=== PATIENT | male | born 1990 | race Two or more races ===

== ENCOUNTER 2018-10-25 05:32 | Emergency (ER) | payer SELFPAY ==
[~2018-10-25] VITALS: Ht 182.9 cm; Wt 77.1 kg
--- NOTE | 2018-10-25 05:40 | NUR ---
PT [id number] FROM [address] C/O L KNEE PAIN X 3 DAYS, DENIES ANY INJURY. NO DEFORMITY NOTED. PT AOX4. NAD NOTED. RESP EVEN AND UNLABORED. PT IN BED 14. WILL CONTINUE TO MONITOR.
[2018-10-25] MEDS ORDERED: MEROPENEM 1 G VIAL IV ONE (06:13)
[2018-10-25] MEDS ORDERED: MORPHINE SULFATE INJ 4 MG/ML DISP.SYRIN ONE (06:14)
[2018-10-25] MEDS ORDERED: ONDANSETRON HCL/PF 4 MG/2 ML VIAL ONE (06:14)
[2018-10-25] MEDS ORDERED: MEROPENEM 1 G in IV NS 0.9% 100 ML IV ONE (06:30)
[2018-10-25] MEDS ORDERED: ONDANSETRON HCL/PF 4 MG/2 ML VIAL IVP ONE (06:30)
[2018-10-25] MEDS ORDERED: MORPHINE SULFATE INJ 2 MG/ML DISP.SYRIN IV ONE (06:30)
[2018-10-25] MEDS ORDERED: IV NS 0.9% 1,000 ML BAG IV ONE (06:30)
[2018-10-25 06:58] LABS: BASOPHILS % (AUTO) 0.4 % (0.0-2.0); EOSINOPHILS % (AUTO) 0.1 % (0.0-6.0); HEMATOCRIT 36 % (39-51); HEMOGLOBIN 12.7 g/dL (13.5-17.5); LYMPHOCYTES # (AUTO) 0.9 /CMM (0.8-4.8); LYMPHOCYTES % (AUTO) 8.6 % (20.0-44.0); MEAN CORPUSCULAR HGB CONC 35 g/dl (31.0-36.0); MEAN CORPUSCULAR VOLUME 89 fL (80-96); MONOCYTES # (AUTO) 0.9 /CMM (0.1-1.30); MONOCYTES % (AUTO) 8.5 % (2.0-12.0); NEUTROPHILS # (AUTO) 8.4 /CMM (1.8-8.9); NEUTROPHILS % (AUTO) 82.4 % (43.0-81.0); PLATELET COUNT (AUTO) 220 /CMM (150-450); RED BLOOD CELL COUNT(AUTO) 4.09 MIL/uL (4.5-6.0); WHITE BLOOD COUNT (AUTO) 10.2 K/uL (4.3-11.0)
--- NOTE | 2018-10-25 06:59 | NUR ---
PHLEB AT BEDSIDE FOR LAB DRAW
[2018-10-25 07:08] LABS: ALANINE AMINOTRANSFERASE 25 U/L (12-78); ALBUMIN 2.8 g/dL (3.4-5.0); ALKALINE PHOSPHATASE 70 U/L (46-116); ASPARTATE AMINOTRANSFERASE 23 U/L (15-37); BILIRUBIN,DIRECT 0.2 mg/dL (0.0-0.2); CALCIUM, SERUM 8.9 mg/dL (8.5-10.1); CARBON DIOXIDE 23 mmol/L (21-32); CHLORIDE 101 mmol/L (98-107); CREATININE 0.8 mg/dL (0.6-1.3); GLUCOSE 112 mg/dL (74-106); POTASSIUM 3.6 mmol/L (3.5-5.1); SODIUM SERUM 135 mmol/L (136-145); TOTAL PROTEIN, SERUM 7.6 g/dL (6.4-8.2); UREA NITROGEN, BLOOD 9 mg/dL (7-18)
--- NOTE | 2018-10-25 07:31 | NUR ---
REPORT GIVEN TO CAESAR AMES RN FOR [facility]ITA
[2018-10-25] MEDS ORDERED: ENOXAPARIN SODIUM 60 MG/0.6 ML DISP.SYRIN SQ ONE (08:30)
[2018-10-25] MEDS ORDERED: ENOXAPARIN SODIUM 80 MG/0.8 ML DISP.SYRIN SQ ONE (08:33)
--- NOTE | 2018-10-25 12:17 | NUR ---
Patient given written and verbal discharge instructions. Patient verbalizes understanding of instructions. Patient is ambulatory with steady gait. Refuses offer of longterm placement. Patient given list of available shelters in surrounding area. IV removed. Catheter intact and site benign. Pressure and 4x4 applied to site. No bleeding noted.
[2018-10-25 12:19] VITALS: BP 149/80
== END 2018-10-25 12:20 | disposition home or self-care (01) ==
LOC: ER 05:39
DX: I82.411 Acute embolism and thrombosis of right femoral vein (principal); L03.115 Cellulitis of right lower limb; F15.10 Other stimulant abuse, uncomplicated; Z59.0 Homelessness
CPT/HCPCS: 36415; 71045; 73551; 80048; 80076; 83605; 84484; 84550; 85025; 85730; 87040 ×2; 93005; 93971; 96365; 96372; 96375; 99284; J1650; J2185; J2270; J2405; J7030 ×2; 73552; A4216